=== PATIENT | female | born 1930 | race Caucasian/White ===

== ENCOUNTER 2016-06-30 08:51 | Emergency (ER) | payer MEDICARE ==
[~2016-06-30] VITALS: Ht 160 cm; Wt 91.0 kg
[~2016-06-30 08:51] MED LIST: ADVA250A INH; ALPH0.1S LEFT EYE; AMLO10 PO; BABY81CH PO; COMBAER INH; COZA100T PO; FLUT50SP EACH NARE; FURO20 PO; GING550C PO; LORTA5 PO; MELO15 PO; MOME0.05 TOP; MONT10TA2 PO; PRED50TA PO; SIMV10 PO; TAB-TAB PO; XALA0.00 EACH EYE
[2016-06-30 08:59] VITALS: BP 175/89; PULSE 99; RESP 16; TEMP 98.1; O2SAT 97
[2016-06-30] MEDS ORDERED: SODIUM CHLORID 0.9% 500 ML INJ 500 ML IV ONE (09:15)
[2016-06-30 09:28] LABS: BASOPHIL # 0.1 TH/MM3 (0-0.2); BASOPHIL % 0.8 % (0.0-2.0); EOSINOPHIL # 0.3 TH/MM3 (0-0.4); EOSINOPHIL % 3.6 % (0.0-4.0); LYMPH % 22.7 % (9.0-44.0); LYMPHOCYTE # 2.1 TH/MM3 (1.0-4.8); MEAN CELL VOLUME 95.5 FL (80.0-100.0); MEAN CORPUSCULAR HEMOGLOBIN 31.8 PG (27.0-34.0); MEAN CORPUSCULAR HGB CONC 33.3 % (32.0-36.0); MONO % 6.8 % (0.0-8.0); NEUT % 66.1 % (16.0-70.0); PLATELET COUNT 258 TH/MM3 (150-450); RED BLOOD COUNT 4.61 MIL/MM3 (4.00-5.30); RED CELL DISTRIBUTION WIDTH 13.5 % (11.6-17.2); WHITE BLOOD COUNT 9.1 TH/MM3 (4.0-11.0)
[2016-06-30 09:29] LABS: HEMO FLAGS DIFF FINAL
[2016-06-30] MEDS ORDERED: LATA0.002 EACH EYE (09:53)
[2016-06-30] MEDS ORDERED: SIMV10TA PO (09:53)
[2016-06-30] MEDS ORDERED: COZA100T PO (09:53)
[2016-06-30] MEDS ORDERED: FURO1TAB62 PO (09:53)
[2016-06-30] MEDS ORDERED: IPRAAER INH (09:53)
[2016-06-30] MEDS ORDERED: ADVA250A INH (09:53)
[2016-06-30] MEDS ORDERED: AMLO10 PO (09:53)
[2016-06-30] MEDS ORDERED: MONT10TA2 PO (09:53)
[2016-06-30] MEDS ORDERED: METF500T PO (09:53)
[2016-06-30] MEDS ORDERED: HYDR-3516 PO (09:53)
[2016-06-30] MEDS ORDERED: MULT-120 PO (09:53)
[2016-06-30] MEDS ORDERED: ASPI81CH7 CHEW (09:53)
[2016-06-30] MEDS ORDERED: ALPH0.1S LEFT EYE (09:53)
[2016-06-30] MEDS ORDERED: ADVA500A INH (09:53)
[2016-06-30 09:59] LABS: ANION GAP 10 MEQ/L (5-15); AST (GOT) 19 U/L (15-37); CHLORIDE 105 MEQ/L (98-107); GLOMERULAR FILTRATION RATE 47 ML/MIN (>89); POTASSIUM 4.2 MEQ/L (3.5-5.1); SODIUM (NA) 143 MEQ/L (136-145)
[2016-06-30 10:00] LABS: TOTAL BILIRUBIN ADULT 0.7 MG/DL (0.2-1.0)
[2016-06-30 10:01] LABS: ALKALINE PHOSPHATASE 35 U/L (45-117); ALT (GPT) 26 U/L (10-53)
[2016-06-30 10:05] LABS: BLOOD UREA NITROGEN 13 MG/DL (7-18)
[2016-06-30 10:29] LABS: BLOOD, URINE TRACE (NEG); GLUCOSE,URINE NEG (NEG); KETONE, URINE NEG (NEG); NITRITE,URINE NEG (NEG); PH, URINE 6.5 (5.0-8.5)
--- NOTE | 2016-06-30 10:30 | PD ---
HPI Chief Complaint: Complaint Time Seen by Provider: 09:04 Travel History International Travel<30 days: No Contact w/Intl Traveler<30days: No Traveled to known affect area: No History of Present Illness HPI Patient is an 86-year-old female who comes in complaining of frequent urination with urgency and suprapubic pain. She says she has been getting up more often at night to urinate for the past week. The past 3 or 4 days she has noticed she is having to urinate constantly. Sometimes it is just a small amount comes out. She has not noticed any blood in her urine. She does not have any blood in her urine. She says that she felt some pain on the right side of her abdomen yesterday, but that is gone away. Now she feels pressure in her suprapubic area. She denies any flank pain. She denies any fever or chills. PFSH Past Medical History Hx Anticoagulant Therapy: Yes (asa 81mg) Arthritis: Yes Asthma: Yes Cancer: No Cardiovascular Problems: Yes (htn on meds) High Cholesterol: Yes Chest Pain: Yes COPD: Yes Diabetes: Yes (type 2) Patient Takes Glucophage: No Endocrine: No Gastrointestinal Disorders: No Genitourinary: No Hypertension: Yes Immune Disorder: No Implanted Vascular Access Dvce: Yes Musculoskeletal: Yes Neurologic: No Psychiatric: No Reproductive: No Respiratory: Yes (copd, asthma) ?: Not Past Surgical History Abdominal Surgery: Yes (APPENDECTOMY ) AICD: No Appendectomy: Yes Arteriovenous Shunt: No Gynecologic Surgery: Yes (HYSTERECTOMY) Hysterectomy: Yes Insulin Pump: No Joint Replacement: No Oral Surgery: Yes (TONSILECTOMY) Pacemaker: No Tonsillectomy: Yes Other Surgery: Yes Social History Alcohol Use: Yes (2 scotch and water daily) Tobacco Use: No Substance Use: No Allergies-Medications (Allergen,Severity, Reaction): Coded Allergies: Codeine (Verified Allergy, Intermediate, ITCHY, 06/30/16) Reported Meds & Prescriptions Reported Meds & Active Scripts Active Macrobid (Nitrofurantoin Monoh/Nitrofur Macro) 100 Mg Cap 100 Mg PO BID 5 Days Pyridium (Phenazopyridine HCl) 100 Mg Tab 100 Mg PO Q8H PRN 2 Days Reported Multivitamin Women (Multiple Vitamins W/ Minerals) 1 Tab Tab 1 Tab PO DAILY Latanoprost Opth Drops (Latanoprost) 0.005% Drops 1 Drop EACH EYE HS Refrigerate until opened. Alphagan P Opth Drops (Brimonidine Tartrate) 0.1% Soln 1 Drop LEFT EYE BID Combivent Respimat Inh (Ipratropium-Albuterol Inh) 20-100 Long-Term/Act Aero 1 Puff INH QID Metformin (Metformin HCl) 500 Mg Tab 500 Mg PO BIDPC With meals Lasix (Furosemide) 20 Mg Tab 20 Mg PO DAILY Hydrocodone-Acetaminophen 5-325 mg Tab 1 Tab PO Q6H PRN Advair Diskus Inh (Fluticasone-Salmeterol Inh) 500-50 Mcg/Blist Aer 1 Puff INH BID Rinse mouth after use. Advair Diskus Inh (Fluticasone-Salmeterol Inh) 250-50 Mcg/Blist Aer 1 Puff INH BID Rinse mouth after use. Singulair (Montelukast Sodium) 10 Mg Tab 10 Mg PO HS Aspirin Children's (Aspirin) 81 Mg Chew 81 Mg CHEW DAILY Cozaar (Losartan Potassium) 100 Mg Tab 100 Mg PO DAILY Norvasc (Amlodipine Besylate) 10 Mg Tab 10 Mg PO DAILY Simvastatin 10 Mg Tab 10 Mg PO DAILY Review of Systems Except as stated in HPI: all other systems reviewed are Neg General / Constitutional: No: Fever, Chills HENT: No: Headaches Cardiovascular: No: Chest Pain or Discomfort Respiratory: No: Shortness of Breath Gastrointestinal: Positive: Abdominal Pain, No: Nausea, Vomiting Genitourinary: Positive: Urgency, Frequency, No: Hematuria, Flank Pain Musculoskeletal: No: Myalgias, Edema Skin: No Rash, No Change in Pigmentation Neurologic: No: Weakness, Dizziness Physical Exam Narrative GENERAL: Awake and alert in no acute distress. SKIN: Warm and dry. HEAD: Atraumatic. Normocephalic. EYES: Pupils equal and round. No scleral icterus. ENT: Mucous membranes pink and moist. NECK: Trachea midline. No JVD. CARDIOVASCULAR: Regular rate and rhythm. No murmur appreciated. RESPIRATORY: No accessory muscle use. Clear to auscultation. Breath sounds equal bilaterally. GASTROINTESTINAL: Abdomen soft, non-tender, nondistended. No CVA tenderness. MUSCULOSKELETAL: No obvious deformities. No clubbing. No cyanosis. No edema. NEUROLOGICAL: Awake and alert. No obvious cranial nerve deficits. Motor grossly within normal limits. Normal speech. PSYCHIATRIC: Appropriate mood and affect; insight and judgment normal. Data Data Last Documented VS Vital Signs Date Time Temp Pulse Resp B/P Pulse Ox O2 Delivery O2 Flow Rate FiO2 06/30/16 10:58 97 15 132/82 97 06/30/16 08:59 98.1 Orders Urinalysis - C+S If Indicated (06/30/16 08:54) Complete Blood Count With Diff (06/30/16 09:13) Comprehensive Metabolic Panel (06/30/16 09:13) Sodium Chlorid 0.9% 500 Ml Inj (Ns 500 M (06/30/16 09:15) Labs Laboratory Tests Test 06/30/16 06/30/16 09:20 10:15 White Blood Count 9.1 TH/MM3 Red Blood Count 4.61 MIL/MM3 Hemoglobin 14.7 GM/DL Hematocrit 44.0 % Mean Corpuscular Volume 95.5 FL Mean Corpuscular Hemoglobin 31.8 PG Mean Corpuscular Hemoglobin 33.3 % Concent Red Cell Distribution Width 13.5 % Platelet Count 258 TH/MM3 Mean Platelet Volume 8.7 FL Neutrophils (%) (Auto) 66.1 % Lymphocytes (%) (Auto) 22.7 % Monocytes (%) (Auto) 6.8 % Eosinophils (%) (Auto) 3.6 % Basophils (%) (Auto) 0.8 % Neutrophils # (Auto) 6.0 TH/MM3 Lymphocytes # (Auto) 2.1 TH/MM3 Monocytes # (Auto) 0.6 TH/MM3 Eosinophils # (Auto) 0.3 TH/MM3 Basophils # (Auto) 0.1 TH/MM3 CBC Comment DIFF FINAL Differential Comment Sodium Level 143 MEQ/L Potassium Level 4.2 MEQ/L Chloride Level 105 MEQ/L Carbon Dioxide Level 28.0 MEQ/L Anion Gap 10 MEQ/L Blood Urea Nitrogen 13 MG/DL Creatinine 1.10 MG/DL Estimat Glomerular Filtration 47 ML/MIN Rate Random Glucose 141 MG/DL Calcium Level 9.2 MG/DL Total Bilirubin 0.7 MG/DL Aspartate Amino Transf 19 U/L (AST/SGOT) Alanine Aminotransferase 26 U/L (ALT/SGPT) Alkaline Phosphatase 35 U/L Total Protein 7.4 GM/DL Albumin 4.1 GM/DL Urine Collection Type CLEAN CATCH Urine Color STRAW Urine Turbidity CLEAR Urine pH 6.5 Urine Specific [place] 1.008 Urine Protein NEG mg/dL Urine Glucose (UA) NEG mg/dL Urine Ketones NEG mg/dL Urine Occult Blood TRACE Urine Nitrite NEG Urine Bilirubin NEG Urine Leukocyte Esterase TRACE Urine RBC 0-3 /hpf Urine WBC 0-2 /hpf Urine Squamous Epithelial > 8 /hpf Cells Urine Bacteria FEW /hpf Microscopic Urinalysis Comment CULT NOT INDICATED Urine Collection Time 10:15 [facility] Medical Decision Making Medical Screen Exam Complete: Yes Emergency Medical Condition: Yes Medical Record Reviewed: Yes Differential Diagnosis UTI versus pyelonephritis versus colitis versus renal stone Narrative Course Patient is an 86-year-old female who comes in complaining of urinary frequency and urgency. Exam shows no abdominal tenderness at this time. Labs sent show no acute abnormalities. Urinalysis shows few bacteria as well as trace leukocyte esterase and trace occult blood. Based on patient's symptoms, we will treat with Macrobid. Patient advised if her symptoms worsen at any time that she should return to the ED for further testing. Advised follow-up with her doctor on Saturday. Patient is comfortable with discharge at this time. Diagnosis Primary Impression: UTI (urinary tract infection) Qualified Code: N30.00 - Acute cystitis without hematuria Patient Instructions: General Instructions, Urinary Tract Infection in Women ( ED) Additional Instructions: Follow up with your doctor. You can take Pyridium for urinary discomfort as needed for two days. Take all of your antibiotics. Return to the ED at any time for any worsening symptoms. Scripts Nitrofurantoin Monohydrate Macrocrystals (Macrobid)100 Mg [id number] Mg PO BID 5 Days Ref 0 Prov:Nataly Canseco MD 06/30/16 Phenazopyridine (Pyridium)100 Mg [id number] Mg PO Q8H PRN (DYSURIA) 2 Days Ref 0 Prov:Nataly Canseco MD 06/30/16 Disposition: 01 DISCHARGE HOME Condition: Stable Nataly Canseco MD Jun 30, 2016 10:30
[2016-06-30 10:36] LABS: METHOD OF COLLECTION CLEAN CATCH; RBC, URINE 0-3 /hpf (0-3); SQUAMOUS EPITHELIAL CELL URINE > 8 /hpf (0-5); URINE COLOR STRAW (YELLW/STRAW); WBC, URINE 0-2 /hpf (0-5)
[2016-06-30 10:37] LABS: BACTERIA, URINE FEW /hpf; COMMENT (UR) CULT NOT INDICATED; CULTURE IF INDICATED CULT NOT INDICATED
[2016-06-30] MEDS ORDERED: MACR100C2 PO (10:48)
[2016-06-30] MEDS ORDERED: PHEN0.4T PO (10:48)
[2016-06-30 10:58] VITALS: BP 132/82
== END 2016-06-30 10:59 | disposition home or self-care (01) ==
LOC: PHED 08:51
DX: N39.0 Urinary tract infection, site not specified (principal); R39.15 Urgency of urination; J45.909 Unspecified asthma, uncomplicated; I10 Essential (primary) hypertension; E78.00 Pure hypercholesterolemia, unspecified; E11.9 Type 2 diabetes mellitus without complications; Z79.01 Long term (current) use of anticoagulants
CPT/HCPCS: 80053; 81001; 85025; 96360; 99283; J7040